=== PATIENT | male | born 1950 | race African-American/Black ===

== ENCOUNTER 2017-01-28 12:55 | Emergency (ER) | payer MEDICAID ==
[~2017-01-28] VITALS: Ht 170.2 cm; Wt 54.0 kg
[~2017-01-28 12:55] MED LIST: ALEVE220 MG OR; BENTYL20 MG OR; CIPRO500 MG OR; CIPROFLOXACN500 MG PO; DICLOFENAC SODI75 MG PO; ECK ASPIRIN325 MG OR; FLEXERIL PO; GABAPENTIN300 MG PO; LORTAB 5/3255 MG PO; LORTAB 7.57.5 MG PO; LYRICA150 MG PO; LYRICA25 MG PO; METRONIDAZOL500 MG PO; NEXIUM40 M1 OR; NO; PENTOXIFYLLI400 M1 PO; PEPCID20 MG PO; ROCEPHIN1 G1 IJ; TRAMADOL HCL50 MG PO; TRAZODONE HCL150 MG OR; TYLENOL500 MG OR; ULTRAM50 M1 PO; ULTRAM50 MG OR; ULTRAM50 MG PO
[2017-01-28 14:30] LABS: HEMATOCRIT 36.3 % (39.0-50.0); HEMOGLOBIN 13.2 g/dl (14.0-18.0); IMMATURE GRANULOCYTES 0.4 % (0.0-1.0); MEAN CELL VOLUME 93.3 fL CALC (80.0-100.0); MEAN CORPUSCULAR HGB 33.9 pG CALC (26.0-32.0); MEAN CORPUSCULAR HGB CONC 36.4 g/L CALC (32.0-36.0); NEUT# 2.99 thou/uL (1.82-7.42); RED BLOOD COUNT 3.89 mill/uL (4.70-6.10); RED CELL DISTRI WIDTH 13.4 % (11.5-15.5)
[2017-01-28 14:47] LABS: ALBUMIN 4.8 g/dL (3.2-5.0); ALKALINE PHOSPHATASE 101 u/l (38-126); ANION GAP 17 (6-22 (CALC)); BILIRUBIN, TOTAL 0.9 mg/dL (0.0-1.4); BUN 8 mg/dL (8-23); BUN/CREATININE RATIO 10 (12-20 (CALC)); CALCIUM 10.1 mg/dL (8.4-10.2); CARBON DIOXIDE 26 mmol/l (22-30); CHLORIDE 101 mmol/l (95-108); CREATININE 0.8 mg/dL (0.7-1.3); ETHYL ALCOHOL 18 mg/dl (0-30); GFR > 60 ML/MIN (>=60 (CALC)); GFR FOR AFR.AMER. > 60 ML/MIN (>=60 (CALC)); GLUCOSE 105 mg/dL (82-115); POTASSIUM 4.1 mmol/l (3.5-5.1); SGOT/AST 83 u/l (19-48); SGPT/ALT 47 u/l (11-66); SODIUM 139 mmol/l (137-146); TOTAL PROTEIN 8.3 g/dL (6.3-8.2)
[2017-01-28 16:33] LABS: BARBITURATES NEGATIVE (NEGATIVE); COCAINE POSITIVE (NEGATIVE); METHADONE NEGATIVE (NEGATIVE); OXCYCODONE NEGATIVE (NEGATIVE); TETRAHYDROCANNABIONOL POSITIVE (NEGATIVE); TRICYLIC ANTIDEPRESSANTS NEGATIVE (NEGATIVE)
[2017-01-28 16:38] VITALS: BP 131/86
== END 2017-01-28 16:38 | disposition left against medical advice (07) | DRG 156 ==
LOC: ED 12:55
PROVIDERS: Emergency Medicine
DX: R07.0 Pain in throat (principal); F17.210 Nicotine dependence, cigarettes, uncomplicated; Z72.89 Other problems related to lifestyle; Z91.19 Patient's noncompliance with other medical treatment and regimen

== ENCOUNTER 2018-12-22 15:51 | Emergency (ER) | payer MEDICARE, MEDICAID ==
[~2018-12-22] VITALS: Ht 170.2 cm; Wt 45.0 kg
[2018-12-22 16:55] LABS: HEMOGLOBIN 8.9 g/dl (14.0-18.0); IMMATURE GRANULOCYTES 1.2 % (0.0-5.0); MEAN CORPUSCULAR HGB 28.8 pG CALC (26.0-32.0); MEAN CORPUSCULAR HGB CONC 33.8 g/L CALC (32.0-36.0); NEUT# 15.39 thou/uL (1.82-7.42); RED BLOOD COUNT 3.09 mill/uL (4.70-6.10)
[2018-12-22 16:56] LABS: HEMATOCRIT 26.3 % (39.0-50.0); MEAN CELL VOLUME 85.1 fL CALC (80.0-100.0)
[2018-12-22 17:12] LABS: ACT PARTIAL THROMBO TIME 27.4 SECONDS (20.0-32.5); PROTHROMBIN TIME 10.8 SECONDS (9.0-12.5)
[2018-12-22 17:13] LABS: ALKALINE PHOSPHATASE 129 u/l (38-126); AMYLASE 65 u/l (30-110); BILIRUBIN, TOTAL 0.6 mg/dL (0.0-1.4); BUN 20 mg/dL (8-23); BUN/CREATININE RATIO 13 (12-20 (CALC)); CARBON DIOXIDE 22 mmol/l (22-30); CHLORIDE 92 mmol/l (95-108); CREATININE 1.5 mg/dL (0.7-1.3); ETHYL ALCOHOL 0 mg/dl (0-30); GFR 47 ML/MIN (>=60 (CALC)); GFR FOR AFR.AMER. 57 ML/MIN (>=60 (CALC)); LIPASE 47 u/l (23-300); POTASSIUM 4.3 mmol/l (3.5-5.1); TOTAL PROTEIN 7.5 g/dL (6.3-8.2)
[2018-12-22 17:15] LABS: ALBUMIN 3.3 g/dL (3.2-5.0); ANION GAP 20 (6-22 (CALC)); MAGNESIUM 1.3 mg/dL (1.6-2.3); SGOT/AST 15 u/l (19-48); SODIUM 130 mmol/l (137-146)
[2018-12-22 18:30] VITALS: BP 127/81
== END 2018-12-22 18:30 | disposition short-term general hospital (02) ==
LOC: ED 15:51
DX: R91.8 Other nonspecific abnormal finding of lung field (principal); J18.9 Pneumonia, unspecified organism; I47.1 Supraventricular tachycardia; F17.200 Nicotine dependence, unspecified, uncomplicated; Z85.9 Personal history of malignant neoplasm, unspecified; R06.02 Shortness of breath

== ENCOUNTER 2019-01-23 15:45 | Emergency (ER) | payer MEDICARE, MEDICAID ==
[~2019-01-23] VITALS: Ht 170.2 cm; Wt 50.0 kg
[2019-01-23 16:51] LABS: HEMOGLOBIN 10.4 g/dl (14.0-18.0); IMMATURE GRANULOCYTES 0.6 % (0.0-5.0); MEAN CELL VOLUME 86.6 fL CALC (80.0-100.0); MEAN CORPUSCULAR HGB 29.1 pG CALC (26.0-32.0); MEAN CORPUSCULAR HGB CONC 33.5 g/L CALC (32.0-36.0); NEUT# 15.58 thou/uL (1.82-7.42); RED BLOOD COUNT 3.58 mill/uL (4.70-6.10); RED CELL DISTRI WIDTH 17.3 % (11.5-15.5)
[2019-01-23 17:10] LABS: ALBUMIN 3.8 g/dL (3.2-5.0); ALKALINE PHOSPHATASE 121 u/l (38-126); ANION GAP 14 (6-22 (CALC)); BILIRUBIN, TOTAL 0.6 mg/dL (0.0-1.4); BUN 30 mg/dL (8-23); BUN/CREATININE RATIO 27 (12-20 (CALC)); CHLORIDE 96 mmol/l (95-108); CREATININE 1.1 mg/dL (0.7-1.3); GFR > 60 ML/MIN (>=60 (CALC)); GFR FOR AFR.AMER. > 60 ML/MIN (>=60 (CALC)); POTASSIUM 4.1 mmol/l (3.5-5.1); SGOT/AST 21 u/l (19-48); SODIUM 134 mmol/l (137-146); TOTAL PROTEIN 8.2 g/dL (6.3-8.2)
[2019-01-23 17:12] LABS: CARBON DIOXIDE 28 mmol/l (22-30)
[2019-01-23 17:20] LABS: MYOGLOBIN 24 ng/mL (0 - 121)
[2019-01-23] MEDS ORDERED: DOXYCYC MONO100 M1 PO (17:57)
[2019-01-23 18:02] VITALS: BP 119/77
== END 2019-01-23 18:20 | disposition home or self-care (01) ==
LOC: ED 15:45
PROVIDERS: Family Medicine
DX: J18.9 Pneumonia, unspecified organism (principal); J44.0 Chronic obstructive pulmonary disease with (acute) lower respiratory infection; R91.8 Other nonspecific abnormal finding of lung field; F17.200 Nicotine dependence, unspecified, uncomplicated; Z85.9 Personal history of malignant neoplasm, unspecified; R00.0 Tachycardia, unspecified

== ENCOUNTER 2019-12-06 23:35 | Observation (INO) | payer MEDICARE, MEDICAID ==
[~2019-12-06] VITALS: Ht 170.2 cm; Wt 45.0 kg
[~2019-12-06 23:35] MED LIST changes: +DOXYCYC MONO100 M1 PO
--- NOTE | 2019-12-06 23:35 | NUR ---
PT TO ROOM 10 BY EMS FOR SOB THAT STARTED 3 DAYS AGO. WORSE TONIGHT WHILE OUTSIDE AT [facility].
--- NOTE | 2019-12-06 23:36 | NUR ---
PT. TO ROOM 10 VIA EMS WITH C/O FEELING SOB X 3 DAYS. BILATERAL LUNG TOLBERT ARE WHEEZES AND STRIDOR. PT. STATES HE GETS CHEMOTHERAPY FOR THROAT CA. O2 SAT ON RA IS 98-99%. MD AT BEDSIDE. EMS STATED THAT THEY GAVE 10 MG IM DEXAMETHASONE PT. REFUSED IV START.
--- NOTE | 2019-12-06 23:50 | NUR ---
BREATHING TREATMENT GIVEN. BREATHING TECH. FOR GOOD DEPOSITION TO THE LUNGS.
[2019-12-06] MEDS ORDERED: OXYCODONE5 M1 PO (23:53)
[2019-12-06] MEDS ORDERED: PRILOSEC20 MG/CAP PO (23:54)
[2019-12-06] MEDS ORDERED: SOD CHLORIDE1 G2 PO (23:56)
[2019-12-07 00:03] LABS: IMMATURE GRANULOCYTES 0.3 % (0.0-5.0); MEAN CELL VOLUME 90.7 fL CALC (80.0-100.0); MEAN CORPUSCULAR HGB 32.6 pG CALC (26.0-32.0); MEAN CORPUSCULAR HGB CONC 35.9 g/dL CAL (32.0-36.0); NEUT# 4.68 thou/uL (1.82-7.42); RED BLOOD COUNT 4.08 mill/uL (4.70-6.10); RED CELL DISTRI WIDTH 13.7 % (11.5-15.5)
[2019-12-07 00:04] LABS: HEMOGLOBIN 13.3 g/dl (14.0-18.0)
[2019-12-07 00:16] LABS: D-DIMER 0.45 mg/L (0.19-0.60)
[2019-12-07 00:20] LABS: ACT PARTIAL THROMBO TIME 25.2 SECONDS (20.0-32.5); ALKALINE PHOSPHATASE 110 u/l (38-126); BILIRUBIN, TOTAL 0.6 mg/dL (0.0-1.4); BUN 14 mg/dL (8-23); BUN/CREATININE RATIO 11 (12-20 (CALC)); CARBON DIOXIDE 26 mmol/l (22-30); CHLORIDE 87 mmol/l (95-108); CREATININE 1.3 mg/dL (0.7-1.3); GFR 55 ML/MIN (>=60 (CALC)); GFR FOR AFR.AMER. > 60 ML/MIN (>=60 (CALC)); POTASSIUM 4.2 mmol/l (3.5-5.1); PROTHROMBIN TIME 9.5 SECONDS (9.0-12.5); TOTAL PROTEIN 8.6 g/dL (6.3-8.2)
[2019-12-07 00:29] LABS: ALBUMIN 4.8 g/dL (3.2-5.0); ANION GAP 17 (6-22 (CALC)); SGOT/AST 39 u/l (19-48); SODIUM 126 mmol/l (137-146)
[2019-12-07 00:32] LABS: MYOGLOBIN 44 ng/mL (0 - 121)
--- NOTE | 2019-12-07 00:41 | NUR ---
RESP. EASIER AT THIS TIME. O2 SAT ON RA 98%.
--- NOTE | 2019-12-07 00:48 | NUR ---
DR MENDEZ IN TO RE-EVALUATE PT.
--- NOTE | 2019-12-07 01:35 | NUR ---
Admission Note Report Given to: CAMMY ARANDA Transported by: X Wheelchair Stretcher Transported with: X Nurse Transporter X Patent IV O2 [employer] Solicitor Location: ICU X [facility]
[2019-12-07 01:49] VITALS: BP 154/83
--- NOTE | 2019-12-07 01:50 | NUR ---
64 YEAR OLD MALE ADMITTED TO ROOM 290 THIS MORNING--ARRIVED TO FLOOR VIA W/C ACCOMPANIED BY ER STAFF WITH DIAGNOSIS OF COPD EXACERBATION AND SOB UNDER OBSERVATION. PATIENT IS ALERT, VERBAL WITH SOME MILD CONFUSION/FORGETFULNESS NOTED, ABLE TO MAKE NEEDS KNOWN. ABLE TO TOLERATE MEDS WELL WHOLE. CONT OF BOWEL AND BLADDER--ABLE TO AMBULATE ABOUT INDEPENDENTLY IN ROOM AND TO AND FROM BR WELL--STEADY GAIT. DENIES PAIN AT TIME OF ASSESSMENT. PATIENT HAS A HISTORY OF EMPHYSEMA/THROAT CANCER--CHEMO HAS BEEN ON HOLD SINCE COVID APPEARED. PRESENTS TO THE ER AFTER BEING AT [facility] T[facility] OUTSIDE AT HIS HOUSE AND BECOMING SOB. NOTED IN ER TO HAVE A CROUP LIKE COUGH--NON PRODUCTIVE. PIV SITE PATENT TO RIGHT AC--FLUSHES WELL--SITE UNREMARKABLE. EXTREMELY VENETIE IRA--DOES WEAR BILATERAL HEARING AIDS--HAS IN ROOM ON SELF AT THIS TIME. TO RECEIVE SCHEDULED NEBULIZER TXS AND BE OBSERVED UNTIL SWAB FOR COVID RETURNS--RAPIDS WERE NEGATIVE. PATIENT STATES HE DOES OCCASSIONALLY HAVE SOME SOB AT HOME WITH EXERTION AND WHILE LYING FLAT, HOWEVER, WHEN OFFERED PATIENT DECLINES TO WEAR O2 AT THIS TIME. O2 SAT OF 96-97% ON RA--NO APPARENT RESP DISTRESS NOTED. LAST BM YESTERDAY. REGULAR DIET. ALLERGIES TO ASA. FULL CODE. 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 PATIENT HAS HOME MEDS ON HIM STORED INSIDE A BAG HE HAD WITH HIM FROM THE ER--INSIDE THE BAG PATIENT NOTED TO HAVE A BOTTLE OF NA CHLORIDE, PRILOSEC, AND OXYCODONE HCL 5MG (21 COUNT--VERFIIED AND COUNTED WITH SECOND NURSE). MEDS SECURED AND PLACED IN THE MED ROOM UNTIL CAN BE BROUGHT TO PHARMACY IN THE AM. ORIENTED TO ROOM--C/L WITHIN REACH. WILL CONT TO MONITOR FOR ANY FURTHER CHANGES.
[2019-12-07 04:15] VITALS: BP 145/79
--- NOTE | 2019-12-07 05:50 | NUR ---
PATIENT SLEPT FOR ABOUT 3 HOURS SINCE ADMISSION TO FLOOR EARLIER THIS MORNING. NO APPARENT DISTRESS NOTED. RECEIVED LOVENOX INJECTION ORDERED @ 2AM AND ALSO SOLUMEDROL GIVEN IV THIS AM WELL--TOLERATED BOTH MEDS WELL--NO C/OS OF SOB NOTED. NO SOB WITH EXERTION NOTED--SATS 96-97% ON RA. PIV SITE PATENT TO RIGHT AC--FLUSHES WELL-SITE UNREMARKABLE. AMBULATES ABOUT ROOM AD AMMON THIS MORNING--INDEPENDENT WITH TOILETING--450ML URINE OUTPUT SINCE 2AM. OFFERS NO COMPLAINTS AT THIS TIME. WILL CONT TO MONITOR FOR ANY FURTHER CHANGES.
--- NOTE | 2019-12-07 07:15 | NUR ---
REPORT RECEIVED FROM LONNY ARANDA.
[2019-12-07 09:08] VITALS: BP 151/92
--- NOTE | 2019-12-07 09:10 | NUR ---
PT RESTING IN SEMI FOWLERS POSITION, A&O X3 BUT FORGETFULNESS NOTED AT TIMES;VS OBTAINED AND ASSESSMENT COMPLETED;PT REPORTS EAGERNESS TO GO HOME, RE-ASSURED PT ON THE NEED FOR IV ABX AND VERBALIZES UNDERSTANDING;RESPIRATIONS EVEN AND UNLABORED,SHALLOW ON RA;NON-PRODUCTIVE COUGH AT TIMES;ABDOMEN SOFT ON PALPATION AND ACTIVE IN ALL 4 QUADRANTS;STRONG PEDAL PULSES;SKIN INTACT;#20G TO RAC FLUSHED AND PATENT,SITE APPEARS HEALTHY;PT DENIES ANY ADDITIONAL NEEDS AT THIS TIME AND IS ENCOURAGED TO CALL FOR ASSISTANCE IF NEEDED;FALL PRECAUTIONS IN PLACE WITH BED IN THE LOWEST POSITION AND CALL LIGHT IN REACH;WILL CONTINUE TO MONITOR
--- NOTE | 2019-12-07 10:15 | NUR ---
PT WALKS OUT OF HALLWAY TO NURSES STATION WITH MASK ON REPORTING THAT HE IS LEAVING AND "WANTS TO GO HOME", PT HEADED TO ELEVATOR AND IS INSTRUCTED TO GO BACK TO ROOM 290;PT RE-POSITIONED INTO BED AT THIS TIME AND SHEREE ANRAYMOND NOTIFIED OF PT WANTING TO BE DISCHARGED HOME;IV SITE REMOVED WITH CATHETER INTACT PER PT REQUEST;PT DENIES ANY ADDITIONAL NEEDS;ENCOURAGED TO CALL FOR ASSISTANCE IF NEEDED;CALL LIGHT IN REACH;WILL CONTINUE TO MONITOR
--- NOTE | 2019-12-07 10:21 | NUR ---
SHEREE ANRP AT BEDSIDE
--- NOTE | 2019-12-07 11:45 | NUR ---
PT RESTING IN SEMI FOWLERS POSITION;RESPIRATIONS REMAIN EVEN AND UNLABORED ON RA;PT DENIES ANY CURRENT PAIN OR DISCOMFORTS;#22G STARTED TO RAC ON 3RD ATTEMPT BY THIS WRITTER AND NS STARTED @ 125ML/HR PER ORDER, ABX STARTED AT THIS TIME;PT REPORTS THAT HE TOOK HIS HOME SODIUM CHLORIDE FROM THE SEALED HOME MEDS PLACED IN PT CLOSET;PHARMACY AND DIGITAL CARTOGRAPHER NOTIFIED; HOME MEDICATIONS RE-VERIFIFED AND HOME OXYCODONE 5MG RECOUNTED WITH PT (21 TABLETS);HOME MEDICATIONS RE-SEALED AND SENT TO PHARMACY WITH MARIA E VELEZ; PT DENIES ANY ADDITIONAL NEEDS AT THIS TIME;ENCOURAGED TO CALL FOR ASSISTANCE IF NEEDED;CALL LIGHT IN REACH;WILL CONTINUE TO MONITOR
[2019-12-07 14:50] VITALS: BP 129/78
--- NOTE | 2019-12-07 16:14 | NUR ---
PT APPEARS TO BE SLEEPING IN SEMI FOWLERS POSITION;RESPIRATIONS EVEN AND UNLABORED ON RA;NO S/S OF DISTRESS NOTED;IV FLUIDS INFUSING WITH EASE PER ORDER;ALL SAFETY PRECAUTIONS REMAIN IN PLACE WITH BED IN THE LOWEST POSITION AND CALL LIGHT IN REACH;WILL CONTINUE TO MONITOR
[2019-12-07 19:00] VITALS: BP 159/81
--- NOTE | 2019-12-07 21:14 | NUR ---
Pt is up walking around room, medicated as orders provide and assessment completed at this time. Pt provided coffee per request, denies any further needs. encouraged pt to call as needs arise.
--- NOTE | 2019-12-08 | NUR ---
PT UP AT BEDSIDE USING URINAL. PT MEDICATED ORDERS PROVIDE AND EXTRA PILLOW PROVIDED FOR COMFORT. PT DENIES ANY OTHER NEEDS. CALL LIGHT AT SIDE AND PT ENCOURAGED TO CALL NEEDS ARISE.
--- NOTE | 2019-12-08 01:20 | NUR ---
PT UP WALKING AROUND ROOM AND BACK TO BED. NO S/O DISTRESS NOTED AT THIS TIME. WILL CONTINUE TO MONITOR.
[2019-12-08 04:00] VITALS: BP 138/82
--- NOTE | 2019-12-08 04:51 | NUR ---
Pt is sleeping, no s/o distress noted.
--- NOTE | 2019-12-08 05:12 | NUR ---
PT SLEEPING, MEDICATED ORDER PROVIDE. NO S/O DISTRESS
[2019-12-08 05:52] LABS: HEMATOCRIT 33.1 % (39.0-50.0); HEMOGLOBIN 11.5 g/dl (14.0-18.0); MEAN CELL VOLUME 92.5 fL CALC (80.0-100.0); MEAN CORPUSCULAR HGB 32.1 pG CALC (26.0-32.0); MEAN CORPUSCULAR HGB CONC 34.7 g/dL CAL (32.0-36.0); RED BLOOD COUNT 3.58 mill/uL (4.70-6.10); RED CELL DISTRI WIDTH 13.6 % (11.5-15.5)
[2019-12-08 06:07] LABS: ANION GAP 14 (6-22 (CALC)); BUN 14 mg/dL (8-23); BUN/CREATININE RATIO 15 (12-20 (CALC)); CARBON DIOXIDE 21 mmol/l (22-30); CHLORIDE 96 mmol/l (95-108); GFR > 60 ML/MIN (>=60 (CALC)); GFR FOR AFR.AMER. > 60 ML/MIN (>=60 (CALC)); MAGNESIUM 1.4 mg/dL (1.6-2.3); POTASSIUM 4.1 mmol/l (3.5-5.1); SODIUM 127 mmol/l (137-146)
--- NOTE | 2019-12-08 08:00 | NUR ---
PATIENT RESTING COMFORTABLY. NO COMPLAINTS OR CONCERNS AT THIS TIME. PATIENT IS HARD OF HEARING. MAG SUPPLEMENTED
[2019-12-08 09:12] VITALS: BP 138/79
[2019-12-08] MEDS ORDERED: ZPAK PO (11:52)
[2019-12-08] MEDS ORDERED: ALBUTERO2 IN (11:52)
[2019-12-08] MEDS ORDERED: MEDDOSEPAK PO (11:52)
[2019-12-08] MEDS ORDERED: KEFLEX500 MG PO (11:52)
--- NOTE | 2019-12-08 11:55 | NUR ---
LAB AT BEDSIDE
--- NOTE | 2019-12-08 12:30 | NUR ---
PATIENT DISCHARGE ORDER IS IN. LAST DOSE OF IV ABV GIVEN. PATIENT STATES HE HAS A RIDE HOME.
--- NOTE | 2019-12-08 13:43 | NUR ---
PATIENT GIVEN DC INSTRUCTIONS AND STATED UNDERSTANDING. HOME MEDS PROVIDED BACK TO PATIENT AND SIGNED FOR. IV DC'D AND PATIENT CALLED FOR RIDE, WHEELCHAIR PROVIDED FOR DC HOME. WILL CONTINUE TO MONITOR AND ASSESS UNTIL RIDE HAS ARRIVED.
--- NOTE | 2019-12-08 13:59 | NUR ---
Discharge instructions given. Patient verbalizes understanding of same. Discharged in stable condition via Wheelchair to Home with friend. All belongings sent with pt. PATIENT LEFT VIA WHEELCHAIR BY NURSE AND MET BY FAMILY FRIEND
--- NOTE | 2019-12-08 14:15 | NUR ---
PATIENT TAKEN DOWN TO ER AREA MEET RIDE VIA WHEELCHAIR. RIDE ARRIVED AT 1415.
== END 2019-12-08 13:59 | disposition home or self-care (01) ==
LOC: ED 23:35 → ED-I 12-07 01:07 → ED 12-07 01:20 → MS2 12-07 01:21
PROVIDERS: Family Medicine; Nurse Practitioner; ADMIT Internal Medicine; ATTEND Internal Medicine
DX: J44.1 Chronic obstructive pulmonary disease with (acute) exacerbation (principal); J18.9 Pneumonia, unspecified organism; J44.0 Chronic obstructive pulmonary disease with (acute) lower respiratory infection; E87.1 Hypo-osmolality and hyponatremia; T59.811A Toxic effect of smoke, accidental (unintentional), initial encounter; J70.5 Respiratory conditions due to smoke inhalation; C14.0 Malignant neoplasm of pharynx, unspecified; K21.9 Gastro-esophageal reflux disease without esophagitis; Y92.89 Other specified places as the place of occurrence of the external cause; Z92.3 Personal history of irradiation; Z87.891 Personal history of nicotine dependence; Z20.828 Contact with and (suspected) exposure to other viral communicable diseases
CPT/HCPCS: G0378; J1650; J3475